=== PATIENT | female | born 1965 | race Two or more races ===

== ENCOUNTER 2024-11-19 05:45 | Day surgery (SDC) | payer MEDICAID, SELFPAY ==
[2024-11-16 06:46] VITALS: BMI 45.0
[2024-11-16 08:58] LABS: Basophils % (Auto) 1 % (0-2.5); Eosinophils # (Auto) 0.2 Thou/mm3 (0.0-0.5); Eosinophils % (Auto) 3 % (0-10); Hematocrit 42.1 % (36.0-46.0); Hemoglobin 13.8 g/dL (12.0-16.0); Immature Granulocytes % (Auto) 0 % (0-0); Immature Granulocytes Auto 0.01 Thou/mm3 (0.00-0.00); Lymphocytes # (Auto) 2.8 Thou/mm3 (1.0-4.8); Lymphocytes % (Auto) 35 % (10-50); Mean Corpuscular HGB Conc 32.8 g/dl (31.0-37.0); Mean Corpuscular Hemoglobin 30.8 pg (25.0-35.0); Mean Corpuscular Volume 94 fL (80-100); Monocytes # (Auto) 0.7 Thou/mm3 (0.0-0.8); Monocytes % (Auto) 9 % (0-12); Neutrophils # (Auto) 4.3 Thou/mm3 (1.8-7.7); Neutrophils % (Auto) 53 % (37-80); Nucleated Red Blood Cell % 0 /100 WBC (0); Platelet Count 245 Thou/mm3 (140-440); Red Blood Count 4.48 Miln/mm3 (4.00-5.20); White Blood Count 8.1 Thou/mm3 (3.6-11.0)
[2024-11-16 09:24] LABS: Alanine Aminotransferase 27 U/L (10-49); Albumin, Serum 4.3 gm/dL (3.5-5.0); Albumin/Globulin Ratio 1.7 (1.2-2.2); Alkaline Phosphatase 109 U/L (46-116); Anion Gap 12 (7-16); Aspartate Amino Transferase 19 U/L (0-34); BUN/Creatinine Ratio 31 Ratio (12-20); Bilirubin,Total 0.3 mg/dL (0.3-1.2); Blood Urea Nitrogen 22 mg/dL (9-23); Calcium 9.4 mg/dL (8.3-10.6); Calcium (Corrected) 9.4 mg/dL (8.5-10.1); Carbon Dioxide 22.2 mMol/L (20.0-31.0); Chloride 105 mMol/L (98-107); Creatinine (Component) 0.7 mg/dL (0.6-1.3); Estimated Creatinine Clearance 119.2 mL/min (>60); Globulin 2.6 gm/dL (2.3-3.5); Glucose 183 mg/dL (74-106); Osmolality,Calculated 285 (275-295); Potassium 4.2 mMol/L (3.4-5.1); Sodium 139 mMol/L (136-145); Total Protein 6.9 gm/dL (5.7-8.2); eGFR > 60 See Note
[2024-11-19] VITALS (8 sets, daily range): BP systolic 116–149; BP diastolic 71–92; PULSE 73–97; RESP 12–16; TEMP 36.2–36.6; O2SAT 92–99; BMI 44.6
[2024-11-19] MEDS: RINGERS LACTATED 1000 ML 1,000 ML 20 ML IV (06:41)
--- NOTE | 2024-11-19 09:04 | PD.SUROPNT ---
Date of Procedure 11/19/24 Pre Op Diagnosis Incarcerated umbilical hernia Post Op Diagnosis Incarcerated umbilical hernia Procedure Laparoscopic assisted repair of incarcerated umbilical hernia Findings An approximately 1.2 cm umbilical hernia defect with incarcerated omentum Procedure Description Patient brought into the operating room in supine position. After administration of general orotracheal anesthesia, patient's abdomen prepped and draped in standard surgical manner. A 5 mm incision was made in left upper quadrant and Veress needle was inserted, pneumoperitoneum was obtained to 15 mmHg. The Veress needle was removed and a 5 mm trocar was placed. Laparoscopic camera was inserted, under direct visualization a laparoscopic camera a 5 mm trocar placed in left lower quadrant and additional 5 mm trocar placed in right lower quadrant. The abdomen was inspected and patient was noted to have an incarcerated umbilical hernia with omentum being incarcerated within the hernia sac. The hernia sac was excised with Harmonic scalpel laparoscopically and the omentum was reduced, there was a large piece of omentum that was unable to be reduced. At this point approximately 3 cm semicircular incision was made inferior to the umbilicus and dissection was carried to subcutaneous tissue. The hernia sac was circumferentially dissected off surrounding tissue and excised from surrounding abdominal fascia. The hernia sac along with incarcerated omentum was excised. The fascia was cleared from overlying tissue. The defect was approximately 1.2 cm in diameter. I elected to primarily repair the hernia defect. The defect was primarily closed with interrupted sutures using 0 Ethibond. Hemostasis was adequate and satisfactory. Instruments and trocars removed, pneumoperitoneum was evacuated and the incisions closed 4-0 Monocryl subcuticular fashion. Instruments, needles and sponge counts were reported to be correct ?2 patient tolerated the procedure well. Patient was extubated, breathing spontaneously and without difficulty and was transferred to postanesthesia care in stable condition. Anesthesia GETA and local Pathology / specimen Other (Hernia sac and contents) Estimated Blood Loss 5 Condition Stable Disposition PACU Surgeon London Allan MD Surgical Staff Operation Date: 11/19/24 07:30 Case Staff Anesthesiologist: Davis Edwards RNparking garage manager: Scarlett Velez
--- NOTE | 2024-11-19 09:15 | SUR.PHASEI ---
0915: Pt. wakes to name then drift back to sleep, vitals stable, breathing unlabored, no signs of distress, dressing to ABD CDI, no active bleed noted, report received from Juan RIOS and MD Edwards.
--- NOTE | 2024-11-19 09:52 | SUR.OPER ---
Late Entry: Pt noted to have a circular superficial laceration to left upper quadrant and old scratch rudy on right upper quadrant.
--- NOTE | 2024-11-19 10:20 | SUR.PHASEII ---
1020: Pt. AAOx4, vitals stable, breathing unlabored, no complaint of pain or nausea, dressing to ABD CDI, no active bleed noted, pt. tolerated sips of water and 7up well, pt. ambulated to wheelchair with steady gait and no assist, no complications. Gave discharge instructions to the pt. and her ride using financial services professional Sade [email or web address], both verbalized understanding and had no further questions. Pt. left with all personal belongings.
--- NOTE | 2024-11-23 16:56 | PD.ANESPROG ---
Documentation for date of: 11/23/24 POST ANESTHESIA NOTE: Patient had GETA for lap umbilical hernia repair on 11/19/24. I just called and spoke with her on the phone via physical plant employee and she denied any problems from anesthesia. Davis Edwards MD Anesthesia Progress Note Progress Note Most recent Vital Signs: Last Vital Signs Temp 97.2 F 11/19/24 10:15 Pulse 78 11/19/24 10:15 Resp 16 11/19/24 10:15 BP 129/87 H 11/19/24 10:15 Pulse Ox 94 L 11/19/24 10:15 O2 Flow Rate 3 11/19/24 09:30
== END 2024-11-19 10:20 | disposition home or self-care (01) ==
PROVIDERS: Anesthesiology; PCP Physician Assistant; Referring Provider Surgery; Visit Provider Surgery
PROC: 0WQF4ZZ Repair Abdominal Wall, Percutaneous Endoscopic Approach (ICD-10-PCS; CPT 49592; principal; 2024-11-19 07:30)
DX: K42.0 Umbilical hernia with obstruction, without gangrene (principal)
CPT/HCPCS: 49592; 36415; 80053; 85025; A4217; A4649; J0131; J0360; J0690; J1100; J2371; J2405; J2704; J2765; J3010; J3490; J7120; J1805

== ENCOUNTER 2025-04-08 11:05 | Day surgery (SDC) | payer MEDICAID, SELFPAY ==
[2025-04-06 10:23] VITALS: BMI 43.6
[2025-04-06 11:15] LABS: Basophils % (Auto) 0 % (0-2.5); Eosinophils # (Auto) 0.1 Thou/mm3 (0.0-0.5); Eosinophils % (Auto) 1 % (0-10); Hemoglobin 14.6 g/dL (12.0-16.0); Immature Granulocytes % (Auto) 1 % (0-0); Immature Granulocytes Auto 0.04 Thou/mm3 (0.00-0.00); Lymphocytes # (Auto) 2.5 Thou/mm3 (1.0-4.8); Lymphocytes % (Auto) 28 % (10-50); Mean Corpuscular HGB Conc 34.8 g/dl (31.0-37.0); Mean Corpuscular Hemoglobin 30.9 pg (25.0-35.0); Mean Corpuscular Volume 89 fL (80-100); Monocytes # (Auto) 0.8 Thou/mm3 (0.0-0.8); Monocytes % (Auto) 9 % (0-12); Neutrophils # (Auto) 5.3 Thou/mm3 (1.8-7.7); Neutrophils % (Auto) 60 % (37-80); Nucleated Red Blood Cell % 0 /100 WBC (0); Platelet Count 265 Thou/mm3 (140-440); RDW Standard Deviation 41.1 fL (36.4-46.3); Red Blood Count 4.73 Miln/mm3 (4.00-5.20); White Blood Count 8.8 Thou/mm3 (3.6-11.0)
[2025-04-06 11:33] LABS: Alanine Aminotransferase 26 U/L (10-49); Albumin, Serum 4.6 gm/dL (3.5-5.0); Albumin/Globulin Ratio 1.8 (1.2-2.2); Alkaline Phosphatase 97 U/L (46-116); Anion Gap 12 (7-16); Aspartate Amino Transferase 19 U/L (0-34); BUN/Creatinine Ratio 21 Ratio (12-20); Bilirubin,Total 0.4 mg/dL (0.3-1.2); Blood Urea Nitrogen 17 mg/dL (9-23); Carbon Dioxide 26.2 mMol/L (20.0-31.0); Chloride 106 mMol/L (98-107); Creatinine (Component) 0.8 mg/dL (0.6-1.3); Estimated Creatinine Clearance 101.1 mL/min (>60); Globulin 2.6 gm/dL (2.3-3.5); Glucose 166 mg/dL (74-106); Osmolality,Calculated 292 (275-295); Potassium 4.1 mMol/L (3.4-5.1); Sodium 144 mMol/L (136-145); Total Protein 7.2 gm/dL (5.7-8.2); eGFR > 60 See Note
[2025-04-06 11:38] LABS: Prothrombin Time 10.6 Seconds (9.0-12.2)
[2025-04-08] VITALS (10 sets, daily range): BP systolic 105–130; BP diastolic 67–86; PULSE 68–85; RESP 12–16; TEMP 36.2–36.6; O2SAT 95–97; BMI 42.7
--- NOTE | 2025-04-08 15:24 | PD.SUROPNT ---
Date of Procedure 04/08/25 Pre Op Diagnosis Symptomatic varicose veins in both lower extremities Post Op Diagnosis Same as preop diagnosis Procedure Bilateral lower extremity varicose vein excisions with 37 incisions on the right and 27 incisions on the left Findings All marked varicose veins were successfully removed or disrupted Procedure Description With the patient standing in the preop area all varicose veins to be removed were carefully marked with a sharpie pen. The patient was then brought to the operating room and general anesthesia was induced. The lower extremities were sterilely prepped and draped. A timeout was performed. The operation was performed by making a small skin namrata in the marked areas then bluntly enlarge and then with a small mosquito clamp and sequentially excising or disrupting the veins. This was done through 37 incisions in the right leg and 27 incisions on the left. When hemostasis was obtained the wounds the leg was cleaned and then Steri-Strips were used to reapproximate the incisions. Gauze Kerlix and Stefan wrap was then applied to both legs. The patient woke well from anesthesia and was moved to recovery in stable condition Anesthesia other (Laryngeal mask anesthesia) Pathology / specimen Other (Bilateral lower extremity varicose veins) Estimated Blood Loss 100 Condition Stable Disposition PACU Surgeon Luis Puckett MD Surgical Staff Operation Date: 04/08/25 13:15 Case Staff Anesthesiologist: Rufus Rangel RN First Assistant: Evelin Quintanilla
--- NOTE | 2025-04-08 15:31 | SUR.PHASEI ---
pt received from OR in recovery bay 1. pt asleep but responds to voice, breathing unlabored on 8l oxymask. v/s stable. pt dressing to bilateral lower extremities cdi. report received from Dr. Rangel and Kami RIOS.
--- NOTE | 2025-04-08 16:11 | SUR.PHASEII ---
pt able to tolerate oral fluids without difficulty swallowing or nausea/vomiting.
[2025-04-08] MEDS: ACETAMINOPHEN IVPB 1,000 MG/100 ML VIAL 250 MG IV (16:18)
[2025-04-08] MEDS: fentaNYL CIT INJ 50 mCg/ML AMP 2ML 25 MCG IV ×2 (16:21→16:51)
--- NOTE | 2025-04-08 17:22 | SUR.PHASEII ---
pt awake and alert, breathing unlabored on room air. v/s stable. pt dressing to bilateral lower extremities cdi. pt able to ambulate to pacu hallway and back to [facility] with steady gait. dressing inspected after ambulation no signs of bleeding noted. d/c instructions given with Contreras in room using water filterer Lisa [email or web address], all questions answered. pt d/c via wheelchair with all belongings.
== END 2025-04-08 17:22 | disposition home or self-care (01) ==
PROVIDERS: Anesthesiology; PCP Physician Assistant; Referring Provider Surgery Vascular Surgery; Visit Provider Surgery Vascular Surgery
PROC: (CPT 37785; principal; 2025-04-08 13:00)
DX: I83.813 Varicose veins of bilateral lower extremities with pain (principal)
CPT/HCPCS: 37766; 36415; 80053; 85025; 85610; 85730; A4217; A4649; J0131; J0690; J1100; J1885; J2250; J2405; J2704; J3010; J3490